=== PATIENT | male | born 1940 | race Caucasian/White ===

== ENCOUNTER 2017-01-01 21:55 | Inpatient (IN) | payer OTHER ==
[~2017-01-01] VITALS: Ht 180.3 cm; Wt 104.3 kg
[2017-01-01 21:58] VITALS: BP 141/82; PULSE 84; RESP 16; TEMP 97.6; O2SAT 96
[2017-01-01] MEDS ORDERED: METO-442 PO (22:06)
[2017-01-01] MEDS ORDERED: MULT1CAP34 PO (22:06)
[2017-01-01] MEDS ORDERED: SIMV40TA2 PO (22:06)
[2017-01-01] MEDS ORDERED: CHOL500037 PO (22:06)
[2017-01-01] MEDS ORDERED: TRIA1CAP53 PO (22:06)
[2017-01-01] MEDS ORDERED: ASPI81TA2 PO (22:06)
--- NOTE | 2017-01-01 22:06 | NUR ---
Medication reconciliation completed with information provided by list from patient. Any prior medication reconciliation on file was reviewed and corrected.
--- NOTE | 2017-01-01 22:07 | NUR ---
Patient to ER bed 2 to gown for evaluation. Side rails up. Report given to VASU NUGENT.
--- NOTE | 2017-01-01 22:07 | NUR ---
Note jim in ED - 01/01/17 at 2207 by SANDY Patient to ER bed 2 to [facility] for evaluation. Side rails up. Report given to Cinda LEONE.
--- NOTE | 2017-01-01 22:15 | NUR ---
PT C/O LT ARM NUMBNESS THAT STARTED 40MINS AGO WHILE PLAYING CARDS AND DRINKING WINE. HE ALSO STATES HE FELT SOME LT ARM NUMBNESS LAST NIGHT FOR A MIN TRYING TO UNLOCK HIS FRONT DOOR. BILAT REFERRAL AND INFORMATION AIDE INTACT, NO FACIAL DROOL, NO ARM DRIFT, BILAT NEURO LEGS INTACT. A/OX4, AFEBRILE. SAFETY PRECAUTIONS IN PLACE, WILL CONTINUE TO MONITOR.
[2017-01-01] MEDS ORDERED: NACL 0.9% 1,000 ML IV ONE (22:53)
[2017-01-01] MEDS ORDERED: ASPIRIN 81 MG TABLET(ECOTRIN) PO ONE (23:00)
[2017-01-01 23:26] LABS: HEMATOCRIT 43.2 % (36-54); HEMOGLOBIN 13.8 g/dL (14.0-18.0); LYMPHOCYTES % (AUTO) 33.2 % (20.5-51.5); MEAN CORPUSCULAR HEMOGLOBIN 29 pg (27-31); MEAN CORPUSCULAR HGB CONC 32 % (32-36); MEAN CORPUSCULAR VOLUME 92 fL (79.0-98.0); MONOCYTES % (AUTO) 12.9 % (1.7-9.3); PLATELET COUNT (AUTO) 173 K/uL (130-430); RED BLOOD CELL COUNT(AUTO) 4.72 MIL/uL (4.2-6.2); WHITE BLOOD COUNT (AUTO) 7.3 K/uL (4.8-10.8)
[2017-01-01 23:27] LABS: BASOPHILS # (AUTO) 0.1 K/uL (0.0-0.2); BASOPHILS % (AUTO) 0.7 % (0.0-2.0); EOSINOPHILS # (AUTO) 0.2 K/uL (0.0-0.4); EOSINOPHILS % (AUTO) 2.2 % (0.0-4.0); LYMPHOCYTES # (AUTO) 2.4 K/uL (1.0-5.5); MONOCYTES # (AUTO) 0.9 K/uL (0.0-1.0); NEUTROPHILS # (AUTO) 3.7 K/uL (1.8-7.7)
[2017-01-01 23:50] LABS: PROTHROMBIN TIME 10.4 SECS (9.5-12.5)
[2017-01-01 23:53] LABS: ANION GAP 6 (5-15); CALCIUM 8.3 mg/dL (8.4-11.0); CHLORIDE 103 mmol/L (98-107); GLUCOSE 160 mg/dL (70-99); POTASSIUM 3.5 mmol/L (3.5-5.1); SODIUM SERUM 136 mmol/L (136-145); UREA NITROGEN, BLOOD 18 mg/dL (8-21)
[2017-01-01 23:54] LABS: ALANINE AMINOTRANSFERASE 31 U/L (12-78); ALBUMIN 3.8 g/dL (3.4-4.8); ASPARTATE AMINOTRANSFERASE 18 U/L (10-37); TOTAL BILIRUBIN 0.3 mg/dL (0.0-1.0); TOTAL PROTEIN, SERUM 7.1 g/dL (6.4-8.3)
[2017-01-02] VITALS (7 sets, daily range): BP systolic 115–146; BP diastolic 69–89; PULSE 58–97; RESP 16–20; TEMP 97–98.2; O2SAT 96–98
--- NOTE | 2017-01-02 00:44 | NUR ---
ADMISSION: The patient, BENJA BOLES, 76 y/o, M, was given written information regarding hospital policies, unit procedures and contact persons.
--- NOTE | 2017-01-02 00:45 | NUR ---
Patient will be admitted to care of DR. HARRIS. Admitted to TELEMETRY unit. Will go to room 107A. ALL Belongings TAKEN W/ PT AND BELONGINGS LIST SIGNED. Summary report printed. Report given at bedside TO NURSE VASU REBOLLAR.
[2017-01-02 01:06] LABS: BILIRUBIN,URINE NEGATIVE (NEGATIVE); BLOOD, URINE NEGATIVE (NEGATIVE); CLARITY/URINE CLEAR (CLEAR); COLOR,URINE YELLOW (YELLOW); GLUCOSE,URINE NEGATIVE (NEGATIVE); KETONES,URINE NEGATIVE (NEGATIVE); LEUKOCYTE ESTERASE ,URINE NEGATIVE (NEGATIVE); NITRITE, URINE NEGATIVE (NEGATIVE); PH,URINE 5.5 (5.0-8.0); PROTEIN URINE NEGATIVE (NEGATIVE); UROBILINOGEN,URINE 0.2 (0.2-1.0)
--- NOTE | 2017-01-02 02:50 | NUR ---
Rounds Pt is resting at this time. No s/s any distress noted. Bed in low position with call light within reach.Will cont to monitor.
--- NOTE | 2017-01-02 04:50 | NUR ---
Rounds Pt is comfortably sleeping at this time. No s/s of any distress noted. Call light within reach. Will cont to monitor.
--- NOTE | 2017-01-02 06:54 | NUR ---
Final notes Pt is comfortably resting @ this time. No s/s of any distress noted. Bed in low position with side rails up x2. Call light within reach, endorsed.
--- NOTE | 2017-01-02 08:00 | NUR ---
AM Initial Notes Pt aaox4 with no complaints of pain or discomfort numbness to left arm noted. No sob, difficulty breathing or distress noted. IV to right AC #20g saline locked patent and flushing. monitoring engineer in place. Educated about fall and safety precautions. Pt refused to have bed alarm on. Kept comfortable. Encouraged to call for assistance. Call light within reach. Will monitor.
--- NOTE | 2017-01-02 09:00 | NUR ---
DR. Garrett BLOUNT inside room assessing patient.
[2017-01-02] MEDS ORDERED: ASPIRIN 81 MG TAB.CHEW PO SCH (09:15)
[2017-01-02] MEDS ORDERED: LORazepam 2 MG/ML VIAL IVP PRN (09:15)
[2017-01-02] MEDS: ASPIRIN 81 MG TAB.CHEW PO SCH (09:26)
--- NOTE | 2017-01-02 09:30 | NUR ---
CALLED NEUROLOGY CONSULT TO DR JARAD Keane, RE: CVA. SPOKE TO ALIX
--- NOTE | 2017-01-02 09:33 | NUR ---
CALLED SURGICAL/VASCULAR CONSULT TO DR RODRIGUEZ, RE: CAROTID STENOSIS. SPOKE TO MRS RODRIGUEZ
[2017-01-02] MEDS ORDERED: METOPROLOL TARTRATE 50 MG TABLET PO ONE (09:45)
[2017-01-02] MEDS ORDERED: TRIAMTERENE/HYDROCHLOROTHIAZID 1 CAP CAPSULE (DYAZIDE37.5/25) PO ONE (10:00)
--- NOTE | 2017-01-02 10:00 | NUR ---
Rounds Pt awake resting in bed with at bedside. No complaints of pain or discomfort. No distress noted. Pt continues to have bed alarm not armed. Kept comfortable. Encouraged to call for assistance. will monitor.
--- NOTE | 2017-01-02 10:22 | NUR ---
consolation was called for DR Pagan and spoke to Annette [phone]
--- NOTE | 2017-01-02 12:00 | NUR ---
Rounds Pt awake sitting up on bed eating lunch. No significant changes noted. Will monitor.
--- NOTE | 2017-01-02 12:30 | NUR ---
Dr. Ej BLOUNT inside room assessing patient.
--- NOTE | 2017-01-02 14:00 | NUR ---
Rounds Pt asleep. No signs of facial grimacing for pain or discomfort. NO distress noted. Will monitor.
[2017-01-02 14:08] LABS: CHOLESTEROL 153 mg/dL (<200); HDL CHOLESTEROL 40 mg/dL (>45); LDL CHOLESTEROL 101 mg/dL (<100); TRIGLYCERIDES 132 mg/dL (30-150)
[2017-01-02] MEDS ORDERED: IOHEXOL 350 mgI/mL, 150 ML INFUS..BTL IV ONE (15:47)
--- NOTE | 2017-01-02 16:00 | NUR ---
Rounds Pt asleep. No significant changes noted. Will monitor.
--- NOTE | 2017-01-02 18:30 | NUR ---
Closing notes Pt awake resting in bed with at bedside. No complaints of numbness to arms. No distress noted. Will endorse care to incoming nurse.
--- NOTE | 2017-01-02 19:10 | NUR ---
Initial notes Recvd pt in bed, a/a/o x4. No s/s of any pain noted. IV noted to R a/c g20, no infiltrate and with good blood return. All extremities are strong, BRP. Discussed plan of care with pt and verbalized understanding. Bed in ow position with side rails up x2. Call light within reach. Will cont to monitor.
[2017-01-02] MEDS: METOPROLOL TARTRATE 50 MG TABLET PO SCH (20:28)
--- NOTE | 2017-01-02 20:47 | NUR ---
paged paged for Dr Leo Monique, dialed . s/w Coby.
[2017-01-02] MEDS ORDERED: SIMVASTATIN 40 MG TABLET PO SCH (21:00)
--- NOTE | 2017-01-02 21:10 | NUR ---
Rounds Pt is awake, watching tv at this time. No s/s of pain or any distress noted. Bed in low position with side rails up x2. Call light within reach. Will cont to monitor.
--- NOTE | 2017-01-02 23:10 | NUR ---
Rounds Pt is resting at this time. No s/s of any pain noted. Bed in low position with side rails up x2 for safety. Call light within reach, will cont to monitor.
--- NOTE | 2017-01-03 01:10 | NUR ---
Rounds Pt ambulated to b/r and safely back to bed. No s/s of any pain noted. Bed in low position with side rails up x2 for safety. Call light within reach, will cont to monitor.
--- NOTE | 2017-01-03 03:10 | NUR ---
Rounds Pt is resting at this time. No s/s of any pain noted. Bed in low position with side rails up x2. Call light within reach, will cont to monitor.
[2017-01-03 04:30] VITALS: BP 122/73; PULSE 67; RESP 19; TEMP 97.9; O2SAT 97
--- NOTE | 2017-01-03 05:06 | NUR ---
Rounds Pt is resting comfortably at this time. Bed in low position with side rails up x2. Call light within reach, will monitor.
--- NOTE | 2017-01-03 06:42 | NUR ---
Final Notes Pt is resting comfortably at this time. No s/s of pain or any distress noted. V/S are WNL. All needs met and anticipated by noc nurses. Bed in low position with side rails up x2 for safety. Call light within reach, endorsed.
--- NOTE | 2017-01-03 07:15 | NUR ---
Butts of Care Pt awake, alert, oriented. No complaint of pain. Able to move all extremities. No weakness, no slurred speech. Will continue to monitor.
[2017-01-03 08:00] VITALS: BP 132/79; PULSE 63; RESP 19; TEMP 98.2; O2SAT 96
[2017-01-03] MEDS: ASPIRIN 81 MG TAB.CHEW PO SCH (08:35)
[2017-01-03] MEDS: METOPROLOL TARTRATE 50 MG TABLET PO SCH (08:36)
[2017-01-03] MEDS ORDERED: TRIAMTERENE/HYDROCHLOROTHIAZID 1 CAP CAPSULE (DYAZIDE37.5/25) PO SCH (09:00)
[2017-01-03 10:11] VITALS: BP 133/70; PULSE 85; RESP 19; TEMP 97.8; O2SAT 98
--- NOTE | 2017-01-03 11:55 | NUR ---
Paged Dr. Pagan as requested by Dr. Bailey to clear pt for discharge. Awaiting MD to call back.
--- NOTE | 2017-01-03 12:10 | NUR ---
Dr. Pagan Is here. VASU Sarah told Dr. Pagan about the possible discharge pending being cleared by Dr. Pagan. No order at this time. Not cleared yet. Patient made aware.
[2017-01-03 12:32] VITALS: BP 115/78; PULSE 58; RESP 18; TEMP 98.9; O2SAT 95
--- NOTE | 2017-01-03 12:36 | NUR ---
Pt and pt's family speaking with Dr. Ej Pagan speaking with pt and pt's family and cleared them to go home. speaking with them for appointment.
--- NOTE | 2017-01-03 13:00 | NUR ---
Pt Discharge Discharged pt after discharge instructions. IV discontinued and arm band removed. In stable condition.
--- NOTE | 2017-01-03 13:00 | NUR ---
Dr. Garcia informed ok to yash Nunez/Dr. Bailey to be discharge today and Dr. Pagan arranged the appointment to out patient surgery department on Thursday01/06/2017 at 0900 am nothing by mouth midnight, to have shower preparation for surgery by noon at the same day; patient instructed to come back at any time to hospital for any CVA symptoms verbalized understanding .
[2017-01-03 14:18] VITALS: Ht 180.3 cm; Wt 104.3 kg
--- NOTE | 2017-01-05 16:00 | NUR ---
Discharge Follow Up Phone Call: INDUSTRIAL TECHNICIAN called and spoke with pt ([phone]). Pt states that he is doing well; there are no questions regarding discharge or medication instructions; pt has a follow up appointment scheduled with PCP, Dr. Mcneal; pt is scheduled for out patient surgery on 01/06/17. Pt did not express any other needs or concerns and denied the need for additional follow up at this time. No further follow up phone calls required at this time.
== END 2017-01-03 13:00 | disposition home or self-care (01) | DRG 69 ==
LOC: SED 21:55 → SMU 01-02 00:35 → STU 01-02 00:45
PROVIDERS: ADMIT Internal Medicine Hospice and Palliative Medicine; ATTEND Internal Medicine Hospice and Palliative Medicine
DX: G45.9 Transient cerebral ischemic attack, unspecified (principal); I65.22 Occlusion and stenosis of left carotid artery; I10 Essential (primary) hypertension; E78.5 Hyperlipidemia, unspecified; I25.10 Atherosclerotic heart disease of native coronary artery without angina pectoris; Z87.891 Personal history of nicotine dependence; Z95.5 Presence of coronary angioplasty implant and graft; Z79.82 Long term (current) use of aspirin; Z79.899 Other long term (current) drug therapy
CPT/HCPCS: 36415; 70450-TC; 70496; 70498; 71010; 80053; 80061; 81003; 84484; 85025; 85610-TC; 85730-TC; 93005; 93306; 93880; 99285; J7030; Q9967

== ENCOUNTER 2017-01-06 08:51 | Inpatient (IN) | payer OTHER ==
[2017-01-03 14:18] VITALS: Ht 177.8 cm; Wt 102.5 kg
[2017-01-06] VITALS (11 sets, daily range): BP systolic 92–113; BP diastolic 37–60; PULSE 53–71; RESP 16–20; TEMP 97.9–100.5; O2SAT 96–99
[~2017-01-06] VITALS: Ht 177.8 cm; Wt 102.5 kg
[~2017-01-06 08:51] MED LIST: ASPI81TA2 PO; CHOL500037 PO; METO-442 PO; MULT1CAP34 PO; SIMV40TA2 PO; TRIA1CAP53 PO
[2017-01-06] MEDS ORDERED: MIDAZOLAM HCL 5 MG/5 ML VIAL ONE (10:00)
[2017-01-06] MEDS ORDERED: HEPARIN SODIUM, PORCINE 10,000 UNITS/ 10 ML VIAL ONE (10:00)
[2017-01-06] MEDS ORDERED: fentaNYL CITRATE 250 MCG/5 ML AMP ONE (10:00)
[2017-01-06] MEDS ORDERED: GELATIN SPONGE 100 TP ONE (10:00)
[2017-01-06] MEDS ORDERED: LR 1,000 ML IV.SOLN IV ONE (10:00)
[2017-01-06] MEDS ORDERED: CEFAZOLIN 2 GM IVPB PREMIX 50 ML IV ONE (10:00)
[2017-01-06] MEDS ORDERED: SEVOFLURANE 15 MIN GAS INH ONE (10:00)
[2017-01-06] MEDS ORDERED: PROPOFOL 200MG/ 20ML VIAL (DIPRIVAN) IV ONE (10:00)
[2017-01-06] MEDS ORDERED: NS IRRIG SOLN 1000 ML IR ONE (10:00)
[2017-01-06] MEDS ORDERED: THROMBIN (BOVINE) 5000 UNITS/ VIAL TP ONE (10:00)
[2017-01-06] MEDS ORDERED: ETOMIDATE 20 MG/ 10 ML VIAL (AMIDATE) ONE (10:00)
[2017-01-06] MEDS ORDERED: METOCLOPRAMIDE HCL 10 MG/2 ML VIAL ONE (10:00)
[2017-01-06] MEDS ORDERED: LR 1,000 ML IV ONE (11:37)
[2017-01-06] MEDS ORDERED: ONDANSETRON HCL 4 MG/2 ML VIAL IVP PRN ×2 (11:45)
[2017-01-06] MEDS ORDERED: fentaNYL CITRATE/PF 100 MCG/2 ML AMP IVP PRN (11:45)
[2017-01-06] MEDS ORDERED: KETOROLAC TROMETHAMINE 30 MG VIAL IM PRN (11:45)
[2017-01-06] MEDS ORDERED: ePHEDrine sulfate 50 MG/ML VIAL IVP PRN (11:45)
[2017-01-06] MEDS ORDERED: DIPHENHYDRAMINE INJ 50 MG/ML VIAL IVP PRN (11:45)
[2017-01-06] MEDS ORDERED: NALBUPHINE HCL 10 MG/ML AMP IVP PRN (11:45)
[2017-01-06] MEDS ORDERED: NALOXONE HCL 0.4 MG/ML AMP (NARCAN) IVP PRN (11:45)
[2017-01-06] MEDS ORDERED: fentaNYL CITRATE/PF 100 MCG/2 ML AMP ONE (13:36)
[2017-01-06] MEDS ORDERED: MORPHINE 2 MG/ML INJ. SYRINGE IVP PRN (14:45)
[2017-01-06] MEDS ORDERED: ASPIRIN 325 MG TABLET (ECOTRIN) PO ONE (15:15)
[2017-01-06] MEDS ORDERED: ASPIRIN 325 MG TABLET PO ONE (16:30)
[2017-01-06] MEDS ORDERED: COMMUNICATION ORDER XX ONE ×2 (17:00)
[2017-01-06] MEDS ORDERED: NITROPRUSSIDE SODIUM 50 MG in D5W 248 ML IV PRN (18:15)
[2017-01-06] MEDS ORDERED: PHENYLEPHRINE HCL 30 MG in D5W 247 ML IV PRN (18:15)
[2017-01-06] MEDS: LR 1,000 ML IV SCH (18:41)
[2017-01-06] MEDS: KETOROLAC TROMETHAMINE 30 MG VIAL IVP PRN (20:45)
[2017-01-07] VITALS (19 sets, daily range): BP systolic 99–150; BP diastolic 53–80; PULSE 54–72; RESP 14–23; TEMP 98–99.7; O2SAT 94–98
[2017-01-07] MEDS ORDERED: COMMUNICATION ORDER XX PRN (02:00)
[2017-01-07] MEDS: KETOROLAC TROMETHAMINE 30 MG VIAL IVP PRN ×2 (07:38→21:35)
[2017-01-07] MEDS: ASPIRIN 325 MG TABLET PO SCH (08:04)
[2017-01-07] MEDS ORDERED: ASPIRIN 325 MG TABLET (ECOTRIN) PO SCH (09:00)
[2017-01-07] MEDS: LR 1,000 ML IV SCH (12:28)
[2017-01-07] MEDS ORDERED: cefTRIAXone 1 GM in D5W 50 ML IV ONE (13:00)
[2017-01-07] MEDS: METOPROLOL TARTRATE 50 MG TABLET PO SCH (21:29)
[2017-01-08 00:14] VITALS: BP 114/60; PULSE 66; RESP 18; TEMP 98.9; O2SAT 92
[2017-01-08 04:16] VITALS: BP 130/70; PULSE 73; RESP 16; TEMP 98; O2SAT 95
[2017-01-08] MEDS: LR 1,000 ML IV SCH (05:05)
[2017-01-08 08:07] VITALS: BP 151/67; PULSE 95; RESP 18; TEMP 97.5; O2SAT 93
[2017-01-08] MEDS ORDERED: cefTRIAXone 1 GM in D5W 50 ML IV SCH (09:00)
[2017-01-08] MEDS: ASPIRIN 325 MG TABLET PO SCH (09:10)
[2017-01-08] MEDS: METOPROLOL TARTRATE 50 MG TABLET PO SCH (09:11)
[2017-01-08 09:12] LABS: ANION GAP 5 (5-15); CALCIUM 8.4 mg/dL (8.4-11.0); CHLORIDE 106 mmol/L (98-107); CREATININE 0.98 mg/dL (0.55-1.30); GLUCOSE 160 mg/dL (70-99); POTASSIUM 3.7 mmol/L (3.5-5.1); SODIUM SERUM 139 mmol/L (136-145); UREA NITROGEN, BLOOD 12 mg/dL (8-21)
[2017-01-08 09:13] LABS: BASOPHILS % (AUTO) 0.5 % (0.0-2.0); EOSINOPHILS # (AUTO) 0.2 K/uL (0.0-0.4); EOSINOPHILS % (AUTO) 2.2 % (0.0-4.0); HEMATOCRIT 38.8 % (36-54); HEMOGLOBIN 13.1 g/dL (14.0-18.0); LYMPHOCYTES # (AUTO) 1.1 K/uL (1.0-5.5); LYMPHOCYTES % (AUTO) 13.1 % (20.5-51.5); MEAN CORPUSCULAR HEMOGLOBIN 31 pg (27-31); MEAN CORPUSCULAR HGB CONC 34 % (32-36); MEAN CORPUSCULAR VOLUME 91 fL (79.0-98.0); MONOCYTES # (AUTO) 1.1 K/uL (0.0-1.0); MONOCYTES % (AUTO) 12.5 % (1.7-9.3); NEUTROPHILS # (AUTO) 6.2 K/uL (1.8-7.7); NEUTROPHILS % (AUTO) 71.7 % (40.0-70.0); PLATELET COUNT (AUTO) 155 K/uL (130-430); RED BLOOD CELL COUNT(AUTO) 4.24 MIL/uL (4.2-6.2); RED CELL DISTRIBUTION WIDTH 12.9 % (9.0-15.0); WHITE BLOOD COUNT (AUTO) 8.6 K/uL (4.8-10.8)
[2017-01-08 09:19] LABS: ALANINE AMINOTRANSFERASE 18 U/L (12-78); ALBUMIN 3.5 g/dL (3.4-4.8); ASPARTATE AMINOTRANSFERASE 16 U/L (10-37); TOTAL BILIRUBIN 0.8 mg/dL (0.0-1.0); TOTAL PROTEIN, SERUM 7.1 g/dL (6.4-8.3)
[2017-01-08 09:58] VITALS: BP 132/85; PULSE 81; RESP 18; TEMP 98; O2SAT 96
== END 2017-01-08 10:40 | disposition home or self-care (01) | DRG 39 ==
LOC: SMU 08:51 → SIC 14:14 → STU 01-07 14:17 → SMU 01-08 09:29
PROVIDERS: ADMIT Specialist; ATTEND Specialist
PROC: 03U Upper Arteries, Supplement (ICD-10-PCS; 2017-01-06)
PROC: 03CH0Z6 (ICD-10-PCS; principal; 2017-01-06 11:00)
DX: I65.21 Occlusion and stenosis of right carotid artery (principal); I10 Essential (primary) hypertension; E78.5 Hyperlipidemia, unspecified; I25.10 Atherosclerotic heart disease of native coronary artery without angina pectoris; R04.0 Epistaxis; Z86.73 Personal history of transient ischemic attack (TIA), and cerebral infarction without residual deficits; Z95.5 Presence of coronary angioplasty implant and graft
CPT/HCPCS: 36415; 80053; 85025; 87081; 88304; 88311; 94760; C1768; J0690; J0696; J1644; J1885; J2250; J2370; J2704; J2765; J3010; J3490; J7060; J7120; L8699

== ENCOUNTER 2018-03-19 05:35 | Day surgery (SDC) | payer OTHER ==
[~2018-03-19] VITALS: Ht 180.3 cm; Wt 102.1 kg
[2018-03-19] MEDS ORDERED: POLYMYXIN 500,000/BACIT.10,000 UNITS in NS IRR 1 L IR ONE (07:20)
[2018-03-19] MEDS ORDERED: SEVOFLURANE 15 MIN GAS INH ONE (07:25)
[2018-03-19] MEDS ORDERED: LIDOCAINE 1% 10 MG/ML, 20 ML MDV INJ ONE (07:25)
[2018-03-19] MEDS ORDERED: NS 100 ML BAG IV ONE (07:25)
[2018-03-19] MEDS ORDERED: LR 1,000 ML IV.SOLN IV ONE (07:25)
[2018-03-19] MEDS ORDERED: LABETALOL 100 MG/ 20ML VIAL IVP ONE (07:25)
[2018-03-19] MEDS ORDERED: ROCURONIUM BROMIDE 10 MG/ML (ZEMURON) IV ONE (07:25)
[2018-03-19] MEDS ORDERED: LIDOCAINE/EPI 1% 1:100000 20 ML VIAL INJ ONE (07:25)
[2018-03-19] MEDS ORDERED: DEXAMETHASONE SOD PHOSPHATE 4 MG/ML VIAL IVP ONE (07:25)
[2018-03-19] MEDS ORDERED: NS 1000 ML IV.SOLN IV ONE (07:25)
[2018-03-19] MEDS ORDERED: PROPOFOL 200MG/ 20ML VIAL (DIPRIVAN) IV ONE (07:25)
[2018-03-19] MEDS ORDERED: ePHEDrine sulfate 50 MG/ML VIAL IVP ONE (07:25)
[2018-03-19] MEDS ORDERED: ONDANSETRON HCL 4 MG/2 ML VIAL IVP ONE ×2 (07:25→09:30)
[2018-03-19] MEDS ORDERED: OXYMETAZOLINE HCL 0.05% NASAL SPRAY NS ONE (07:25)
[2018-03-19] MEDS ORDERED: SUCCINYLCHOLINE CHLORIDE 20 MG/ML(QUELICIN) IVP ONE (07:25)
[2018-03-19] MEDS ORDERED: fentaNYL CITRATE 250 MCG/5 ML AMP IV ONE (07:25)
[2018-03-19] MEDS ORDERED: NEOSTIGMINE METHYLSULFATE 1 MG/ML, 10 ML VIAL IVP ONE (07:25)
[2018-03-19] MEDS ORDERED: GLYCOPYRROLATE 0.2 MG/ML VIAL IJ ONE (07:25)
[2018-03-19] MEDS ORDERED: MIDAZOLAM HCL 5 MG/5 ML VIAL IVP ONE (07:25)
[2018-03-19] MEDS ORDERED: GLYCOPYRROLATE 0.2 MG/ML VIAL ONE (09:00)
[2018-03-19] MEDS ORDERED: HYDROmorphone 1 MG INJ. 1 MG/ML AMPUL IVP PRN (09:30)
[2018-03-19] MEDS ORDERED: NALOXONE HCL 0.4 MG/ML AMP (NARCAN) IVP ONE (09:30)
[2018-03-19] MEDS ORDERED: fentaNYL CITRATE/PF 100 MCG/2 ML AMP IVP PRN (09:30)
[2018-03-19] MEDS ORDERED: MIDAZOLAM HCL 5 MG/5 ML VIAL IVP PRN (09:30)
[2018-03-19] MEDS ORDERED: MEPERIDINE HCL/PF 25 MG/ML DISP.SYRIN IVP PRN (09:30)
[2018-03-19 10:42] VITALS: BP_SYST 118
== END 2018-03-19 11:50 | disposition home or self-care (01) ==
LOC: SMU 05:35 → SDS 05:35
PROVIDERS: ATTEND Otolaryngology
DX: J34.2 Deviated nasal septum (principal); J32.9 Chronic sinusitis, unspecified; R04.0 Epistaxis; J34.89 Other specified disorders of nose and nasal sinuses; I10 Essential (primary) hypertension; Z79.899 Other long term (current) drug therapy; Z95.5 Presence of coronary angioplasty implant and graft; Z98.890 Other specified postprocedural states; Z68.30 Body mass index [BMI] 30.0-30.9, adult
CPT/HCPCS: 30140; 30520; 88305; 88311; J0330; J1100; J2001; J2250; J2405; J2704; J2710; J3010; J3490 ×2; J7030; J7120

== ENCOUNTER 2024-02-24 08:15 | Emergency (ER) | payer OTHER ==
[~2024-02-24] VITALS: Ht 177.8 cm; Wt 83.9 kg
[~2024-02-24 08:15] MED LIST changes: +ASPI-1155 PO; -ASPI81TA2 PO; +SIMV-345 PO; -SIMV40TA2 PO
[2024-02-24 08:23] VITALS: BP_SYST 114; PULSE 81; RESP 18; TEMP 98.1; O2SAT 91
[2024-02-24 09:24] LABS: BASOPHILS % (AUTO) 0.2 % (0.0-2.0); EOSINOPHILS # (AUTO) 0.1 K/uL (0.0-0.4); EOSINOPHILS % (AUTO) 0.5 % (0.0-4.0); HEMATOCRIT 33.9 % (36-54); HEMOGLOBIN 10.7 g/dL (14.0-18.0); LYMPHOCYTES # (AUTO) 1.4 K/uL (1.0-5.5); LYMPHOCYTES % (AUTO) 8.8 % (20.5-51.5); MEAN CORPUSCULAR HEMOGLOBIN 23 pg (27-31); MEAN CORPUSCULAR HGB CONC 32 % (32-36); MEAN CORPUSCULAR VOLUME 73 fL (79.0-98.0); MONOCYTES # (AUTO) 1.9 K/uL (0.0-1.0); MONOCYTES % (AUTO) 12.5 % (1.7-9.3); PLATELET COUNT (AUTO) 469 K/uL (130-430); RED BLOOD CELL COUNT(AUTO) 4.66 MIL/uL (4.2-6.2); RED CELL DISTRIBUTION WIDTH 17.7 % (9.0-15.0); WHITE BLOOD COUNT (AUTO) 15.4 K/uL (4.8-10.8)
[2024-02-24 09:47] LABS: ALANINE AMINOTRANSFERASE 29 U/L (12-78); ALBUMIN 2.2 g/dL (3.4-4.8); ANION GAP 9 (5-15); ASPARTATE AMINOTRANSFERASE 19 U/L (10-37); CALCIUM 9.1 mg/dL (8.4-11.0); CARBON DIOXIDE 27 mmol/L (23-29); CHLORIDE 100 mmol/L (98-107); CREATININE 0.97 mg/dL (0.55-1.30); GLUCOSE 114 mg/dL (74-106); POTASSIUM 4.9 mmol/L (3.5-5.1); SODIUM SERUM 136 mmol/L (136-145); TOTAL BILIRUBIN 0.4 mg/dL (0.0-1.0); TOTAL PROTEIN, SERUM 7.6 g/dL (6.4-8.3); UREA NITROGEN, BLOOD 15 mg/dL (8-21)
[2024-02-24 09:49] LABS: BILIRUBIN,DIRECT 0.1 mg/dL (0.0-0.3)
[2024-02-24] MEDS ORDERED: AUG875 PO (12:10)
[2024-02-24] MEDS ORDERED: AZIT-93 PO (12:10)
[2024-02-24 12:25] VITALS: BP_SYST 128; PULSE 78; RESP 18; TEMP 97; O2SAT 95
== END 2024-02-24 12:25 | disposition home or self-care (01) ==
LOC: SED 08:15
DX: S00.81XA Abrasion of other part of head, initial encounter (principal); J16.8 Pneumonia due to other specified infectious organisms; M25.561 Pain in right knee; I10 Essential (primary) hypertension; Z85.118 Personal history of other malignant neoplasm of bronchus and lung; Z79.899 Other long term (current) drug therapy; Z79.2 Long term (current) use of antibiotics; W18.39XA Other fall on same level, initial encounter; Y93.89 Activity, other specified; Y92.89 Other specified places as the place of occurrence of the external cause; Y99.8 Other external cause status
CPT/HCPCS: 36415; 70450-TC; 71045; 73564; 80048; 80076; 83735; 84100; 84484; 85025; 93005; 99284